=== PATIENT | female | born 1930 | race Caucasian/White ===

== ENCOUNTER 2020-07-22 13:25 | Inpatient (IN) ==
[2020-07-22] MEDS ORDERED: Naloxone 0.4 MG/ML INJ IVP PRN (16:29)
[2020-07-22] MEDS ORDERED: Ipratropium/Albuterol Neb 3 ML IH PRN (17:05)
[2020-07-22 17:32] LABS: Hemoglobin 6.7 g/dL (11.5-15.4); Immature Granulocytes % 0.2 % (0-4); Mean Platelet Volume 10.1 fL (9.4-12.4); Red Cell Distribution Width 13.3 % (11.5-14.5)
[2020-07-22 17:33] LABS: Calcium 8.6 mg/dL (8.6-10.3); Potassium 4.9 mEq/L (3.5-5.1)
[2020-07-22 17:34] LABS: Hematocrit 22.5 % (35.3-44.9); Immature Platelets 4.6 % (1.1-6.1); Lymphocytes # 1.1 K/mcL (0.6-4.6); Lymphocytes % 16.4 %; Mean Corpuscular HGB Conc 29.8 g/dL (31.6-35.5); Mean Corpuscular Hemoglobin 30.7 pg (28.0-33.3); Mean Corpuscular Volume 103.2 fL (83.0-100.0); Monocytes # 0.7 K/mcL (0.0-1.3); Monocytes % 10.2 %; Neutrophils # 4.7 K/mcL (1.6-8.9); Platelet Count 108 K/mcL (140-400); Red Blood Count 2.18 M/mcL (3.82-4.97); Segmented Neutrophils % 73.2 %; White Blood Count 6.4 K/mcL (4.3-11.1)
[2020-07-22] MEDS: D5% in Water 1,000 ML IVC SCH (18:19)
[2020-07-23] MEDS ORDERED: 0.9 % Sodium Chloride 250 ML ONE ×2 (01:38→05:04)
[2020-07-23 02:32] LABS: Adenovirus Not Detected (Not Detect); Bordetella Pertussis Not Detected (Not Detect); Chlamydophila pneumoniae Not Detected (Not Detect); Coronavirus 229E Not Detected (Not Detect); Coronavirus HKU1 Not Detected (Not Detect); Coronavirus NL63 Not Detected (Not Detect); Coronavirus OC43 Not Detected (Not Detect); Human Metapneumovirus Not Detected (Not Detect); Human Rhinovirus/Enterovirus Not Detected (Not Detect); Influenza A Subtype 2009 H1 Not Detected (Not Detect); Influenza B Not Detected (Not Detect); Mycoplasma pneumoniae Not Detected (Not Detect); Parainfluenza Virus 1 Not Detected (Not Detect); Parainfluenza Virus 2 Not Detected (Not Detect); Parainfluenza Virus 3 Not Detected (Not Detect); Parainfluenza Virus 4 Not Detected (Not Detect); Respiratory Syncytial Virus Not Detected (Not Detect); SARS-CoV-2 Not Detected (Not Detect)
[2020-07-23] MEDS: D5% in Water 1,000 ML IVC SCH (06:22)
[2020-07-23 11:12] LABS: Calcium 8.1 mg/dL (8.6-10.3); Magnesium 1.9 mg/dL (1.6-2.6); Phosphorous 3.5 mg/dL (2.7-4.5); Potassium 4.5 mEq/L (3.5-5.1)
[2020-07-23 12:22] LABS: Eosinophils % 0.4 %; Mean Corpuscular Volume 92.2 fL (83.0-100.0)
[2020-07-23 12:24] LABS: Basophils % 0.8 %; Hematocrit 24.9 % (35.3-44.9); Immature Granulocytes % 3.9 % (0-4); Immature Platelets 3.8 % (1.1-6.1); Lymphocytes % 19.5 %; Mean Corpuscular HGB Conc 32.1 g/dL (31.6-35.5); Mean Corpuscular Hemoglobin 29.6 pg (28.0-33.3); Mean Platelet Volume 10.6 fL (9.4-12.4); Monocytes # 0.8 K/mcL (0.0-1.3); Monocytes % 15.8 %; Segmented Neutrophils % 59.6 %; White Blood Count 5.1 K/mcL (4.3-11.1)
[2020-07-23 12:42] LABS: Platelet Count 81 K/mcL (140-400)
[2020-07-23] MEDS ORDERED: *HR* FentaNYL (PF) 100 MCG/2 ML VIAL ONE (14:41)
[2020-07-23] MEDS ORDERED: Dexamethasone 4 MG/ML VIAL ONE (14:43)
[2020-07-23] MEDS ORDERED: Ondansetron 4 MG/2 ML VIAL ONE (14:43)
[2020-07-23] MEDS ORDERED: *HR* Succinylcholine 200 MG/10 ML VIAL IVP ONE (14:44)
[2020-07-23] MEDS ORDERED: *HR* Propofol 200 MG/20 ML VIAL IVP ONE (14:44)
[2020-07-23 14:49] LABS: INR 1.1; Prothrombin Time 13.1 Seconds (9.4-12.1)
[2020-07-23] MEDS ORDERED: ALPRAZolam 1 MG TABLET PO SCH (15:00)
[2020-07-23] MEDS ORDERED: Ondansetron 4 MG/2 ML VIAL IVP PRN ×2 (15:22→20:33)
[2020-07-23] MEDS ORDERED: *HR* OxyCODONE Immed Rel 5 MG TABLET PO PRN ×2 (15:22→20:33)
[2020-07-23] MEDS ORDERED: *HR* HYDROmorphone PF 0.5 MG/0.5 ML SYRINGE IVP PRN ×2 (15:22→20:33)
[2020-07-23] MEDS ORDERED: ceFAZolin 2,000 MG in Water for inj. (sterile) 20 ML IVP ONE (17:00)
[2020-07-23] MEDS ORDERED: EPHEDrine 50 MG/ML VIAL ONE (17:01)
[2020-07-23] MEDS ORDERED: *HR* PHENYLEPHRINE 1,000 MCG/10 ML SYRINGE IVP ONE ×2 (17:31→17:50)
[2020-07-23] MEDS ORDERED: *HR* Phenylephrine 10 MG/ML VIAL ONE (18:00)
[2020-07-23] MEDS ORDERED: Albumin Human 5% 12.5 GM/250 ML IV.SOLN ONE ×2 (18:19→18:34)
[2020-07-23 18:22] LABS: VBG Base Excess 10 mEq/L; VBG Chloride 98 mEq/L (98-107); VBG Glucose 117 mg/dl (65-95); VBG HCO3 36 mEq/L (21-27); VBG Ionized Calcium 1.08 mmol/L (1.15-1.35); VBG Oxygen Saturation 30 %; VBG PCO2 61 mmHg (41-51); VBG PH 7.38 pH Units (7.32-7.42); VBG PO2 20 mmHg (25-50); VBG Total CO2 38 mEq/L
[2020-07-23] MEDS: Ipratropium/Albuterol Neb 3 ML IH SCH ×3 (19:01→19:10)
[2020-07-23] MEDS ORDERED: *HR* HYDROMORPHONE 2 MG/ML VIAL ONE (19:10)
[2020-07-23] MEDS ORDERED: Ipratropium/Albuterol Neb 3 ML IH PRN (20:33)
[2020-07-23] MEDS ORDERED: Naloxone 0.4 MG/ML INJ IVP PRN (20:33)
[2020-07-23] MEDS ORDERED: D5% in Water 1,000 ML IVC SCH (20:33)
[2020-07-23] MEDS ORDERED: Gabapentin 300 MG CAPSULE PO SCH (21:00)
[2020-07-23 21:56] LABS: Hematocrit 22.1 % (35.3-44.9); Hemoglobin 7.2 g/dL (11.5-15.4)
[2020-07-23] MEDS ORDERED: Budesonide/Formoterol 160/4.5 1 PUFF INH IH SCH (22:00)
[2020-07-23] MEDS: ALPRAZolam 1 MG TABLET PO SCH (22:10)
[2020-07-23] MEDS: Gabapentin 300 MG CAPSULE PO SCH (22:10)
[2020-07-23] MEDS: Budesonide/Formoterol 160/4.5 1 PUFF INH IH SCH (22:38)
[2020-07-24] MEDS: Ipratropium/Albuterol Neb 3 ML IH SCH ×6 (00:06→21:16)
[2020-07-24] MEDS: ceFAZolin 2,000 MG in 0.9 % Sodium Chloride 100 ML IVPB SCH ×3 (00:37→16:14)
[2020-07-24 01:47] LABS: Mean Corpuscular Volume 94.8 fL (83.0-100.0); White Blood Count 5.3 K/mcL (4.3-11.1)
[2020-07-24 01:50] LABS: Hematocrit 18.1 % (35.3-44.9); Immature Granulocytes % 0.2 % (0-4); Immature Platelets 4.3 % (1.1-6.1); Lymphocytes # 0.5 K/mcL (0.6-4.6); Lymphocytes % 8.5 %; Mean Corpuscular HGB Conc 31.5 g/dL (31.6-35.5); Mean Corpuscular Hemoglobin 29.8 pg (28.0-33.3); Monocytes # 0.6 K/mcL (0.0-1.3); Monocytes % 10.5 %; Neutrophils # 4.3 K/mcL (1.6-8.9); Red Blood Count 1.91 M/mcL (3.82-4.97); Segmented Neutrophils % 80.8 %
[2020-07-24 01:52] LABS: Platelet Count 70 K/mcL (140-400)
[2020-07-24 01:56] LABS: Hemoglobin 5.7 g/dL (11.5-15.4)
[2020-07-24 02:07] LABS: Calcium 7.3 mg/dL (8.6-10.3); Magnesium 1.7 mg/dL (1.6-2.6); Phosphorous 4.2 mg/dL (2.7-4.5); Potassium 4.8 mEq/L (3.5-5.1)
[2020-07-24] MEDS ORDERED: 0.9 % Sodium Chloride 250 ML ONE ×3 (03:04→18:12)
[2020-07-24] MEDS: Budesonide/Formoterol 160/4.5 1 PUFF INH IH SCH ×2 (08:09→21:16)
[2020-07-24] MEDS ORDERED: Aspirin Enteric Coated 81 MG Tablet PO SCH (09:00)
[2020-07-24] MEDS: Gabapentin 300 MG CAPSULE PO SCH ×2 (09:59→20:15)
[2020-07-24] MEDS: ALPRAZolam 1 MG TABLET PO SCH ×3 (10:00→20:15)
[2020-07-24] MEDS: Aspirin Enteric Coated 81 MG Tablet PO SCH (10:01)
[2020-07-24] MEDS ORDERED: Furosemide 40 MG/4 ML VIAL IVP ONE (15:49)
[2020-07-24 16:21] LABS: Hematocrit 22.3 % (35.3-44.9); Hemoglobin 7.2 g/dL (11.5-15.4)
[2020-07-24] MEDS ORDERED: Furosemide 20 MG/2 ML VIAL IVP ONE (16:47)
[2020-07-25] MEDS: Ipratropium/Albuterol Neb 3 ML IH SCH ×7 (00:14→23:37)
[2020-07-25 00:27] LABS: Hematocrit 24.1 % (35.3-44.9); Hemoglobin 7.6 g/dL (11.5-15.4)
[2020-07-25] MEDS: Budesonide/Formoterol 160/4.5 1 PUFF INH IH SCH ×2 (08:04→19:47)
[2020-07-25] MEDS: Gabapentin 300 MG CAPSULE PO SCH ×2 (09:34→20:42)
[2020-07-25] MEDS: Aspirin Enteric Coated 81 MG Tablet PO SCH (09:34)
[2020-07-25] MEDS: ALPRAZolam 1 MG TABLET PO SCH ×3 (09:35→20:42)
[2020-07-25] MEDS: polyethylene glycoL 3350 17 GM POWD.PACK PO SCH (09:42)
[2020-07-25 10:27] LABS: Immature Granulocytes % 0.2 % (0-4); Mean Corpuscular Volume 94.4 fL (83.0-100.0); Red Cell Distribution Width 15.9 % (11.5-14.5); Segmented Neutrophils % 73.1 %
[2020-07-25 10:29] LABS: Hematocrit 25.5 % (35.3-44.9); Hemoglobin 8.2 g/dL (11.5-15.4); Immature Platelets 3.6 % (1.1-6.1); Lymphocytes # 0.6 K/mcL (0.6-4.6); Lymphocytes % 13.8 %; Mean Corpuscular HGB Conc 32.2 g/dL (31.6-35.5); Mean Corpuscular Hemoglobin 30.4 pg (28.0-33.3); Mean Platelet Volume 10.3 fL (9.4-12.4); Monocytes # 0.5 K/mcL (0.0-1.3); Monocytes % 11.9 %; Neutrophils # 3.1 K/mcL (1.6-8.9); White Blood Count 4.2 K/mcL (4.3-11.1)
[2020-07-25 10:30] LABS: Platelet Count 74 K/mcL (140-400)
[2020-07-25 10:45] LABS: BUN/Creatinine Ratio 32 (6-26); Blood Urea Nitrogen 27 mg/dL (8-23); Calcium 7.4 mg/dL (8.6-10.3); Carbon Dioxide 33 mEq/L (23-29); Chloride 100 mEq/L (98-107); Glucose 207 mg/dL (70-105); Magnesium 1.7 mg/dL (1.6-2.6); Osmolality,Calculated 293 (280-300); Potassium 4.1 mEq/L (3.5-5.1); Sodium 136 mEq/L (136-145); eGFR For African Americans > 60 (> 60); eGFR For Non-African Americans > 60 (> 60)
[2020-07-25] MEDS ORDERED: Perflutren Lipid Microsphere 1.3 ML in 0.9 % Sodium Chloride 8.7 ML IVP PRN (14:00)
[2020-07-25] MEDS ORDERED: 0.9 % Sodium Chloride 1,000 ML IVC ONE (14:01)
[2020-07-25 14:56] LABS: Hematocrit 26.2 % (35.3-44.9); Hemoglobin 8.2 g/dL (11.5-15.4)
[2020-07-25] MEDS ORDERED: 0.9 % Sodium Chloride 250 ML ONE ×2 (15:14→22:42)
[2020-07-25] MEDS ORDERED: Furosemide 20 MG/2 ML VIAL IVP ONE (16:27)
[2020-07-26] MEDS ORDERED: Acetaminophen IV 500 MG/50 ML INFUS..BTL IVPB ONE (00:14)
[2020-07-26] MEDS: Ipratropium/Albuterol Neb 3 ML IH SCH ×6 (03:38→23:28)
[2020-07-26 05:15] LABS: ABG Base Excess 14 mEq/L (-2 to 3); ABG HCO3 41 mEq/L (21-27); ABG Oxygen Saturation 96 % (95-98); ABG PCO2 71 mmHg (35-45); ABG PH 7.37 pH Units (7.32-7.45); ABG PO2 87 mmHg (85-104); ABG TCO2 43 mEq/L (20-26)
[2020-07-26] MEDS: Budesonide/Formoterol 160/4.5 1 PUFF INH IH SCH ×2 (08:00→19:56)
[2020-07-26 08:46] LABS: Basophils % 0.3 %; Immature Granulocytes % 0.3 % (0-4); Mean Platelet Volume 9.4 fL (9.4-12.4)
[2020-07-26 08:48] LABS: Eosinophils # 0.1 K/mcL (0.0-0.6); Eosinophils % 2.2 %; Hematocrit 27.9 % (35.3-44.9); Hemoglobin 8.9 g/dL (11.5-15.4); Immature Platelets 2.5 % (1.1-6.1); Lymphocytes # 0.9 K/mcL (0.6-4.6); Lymphocytes % 28.6 %; Mean Corpuscular HGB Conc 31.9 g/dL (31.6-35.5); Mean Corpuscular Hemoglobin 30.2 pg (28.0-33.3); Mean Corpuscular Volume 94.6 fL (83.0-100.0); Monocytes # 0.4 K/mcL (0.0-1.3); Monocytes % 13.7 %; Neutrophils # 1.8 K/mcL (1.6-8.9); Red Blood Count 2.95 M/mcL (3.82-4.97); Red Cell Distribution Width 15.3 % (11.5-14.5); Segmented Neutrophils % 54.9 %; White Blood Count 3.2 K/mcL (4.3-11.1)
[2020-07-26 08:50] LABS: Platelet Count 79 K/mcL (140-400)
[2020-07-26 09:08] LABS: BUN/Creatinine Ratio 27 (6-26); Blood Urea Nitrogen 21 mg/dL (8-23); Calcium 7.9 mg/dL (8.6-10.3); Carbon Dioxide 39 mEq/L (23-29); Chloride 103 mEq/L (98-107); Glucose 109 mg/dL (70-105); Magnesium 1.7 mg/dL (1.6-2.6); Osmolality,Calculated 300 (280-300); Phosphorous 2.5 mg/dL (2.7-4.5); Potassium 4.1 mEq/L (3.5-5.1); Sodium 143 mEq/L (136-145); eGFR For African Americans > 60 (> 60); eGFR For Non-African Americans > 60 (> 60)
[2020-07-26] MEDS ORDERED: 0.9 % Sodium Chloride 1,000 ML IVC SCH (09:30)
[2020-07-26] MEDS ORDERED: cefTRIAXone 1,000 MG in Water for inj. (sterile) 10 ML IVP SCH (10:00)
[2020-07-26] MEDS: polyethylene glycoL 3350 17 GM POWD.PACK PO SCH (10:02)
[2020-07-26] MEDS: Aspirin Enteric Coated 81 MG Tablet PO SCH (10:06)
[2020-07-26] MEDS: Gabapentin 300 MG CAPSULE PO SCH ×3 (10:06→21:28)
[2020-07-26 12:10] LABS: Bacteria,Urine Few per hpf (None-Few); Bilirubin,Urine Negative (Negative); Blood,Urine Small (Negative); Clarity,Urine Clear (Clear); Color,Urine Light-Orange (Yellow); Glucose,Urine (UA) Normal (Normal); Ketones,Urine Negative (Negative); Leukocyte Esterase,Urine Negative (Negative); Mucus,Urine Few per lpf (None-Few); Nitrite,Urine Negative (Negative); Protein,Urine 50 mg/dL (Neg-Trace); Specific Gravity,Urine 1.018 (1.010-1.025); Squamous Epithelial Cell,Urine Few per hpf (None-Few); Urobilinogen,Urine Normal (Normal); WBC,Urine 0-3 per hpf (0-3)
[2020-07-26] MEDS ORDERED: Azithromycin 500 MG in 0.9 % Sodium Chloride 250 ML IVPB SCH (13:00)
[2020-07-26] MEDS: Piperacillin/Tazobactam 3.375 GM in 0.9 % Sodium Chloride Mini Bag 100 ML IVPB SCH ×2 (13:49→21:29)
[2020-07-27] MEDS ORDERED: *HR* LORazepam 2 MG/ML VIAL IVP ONE (02:10)
[2020-07-27] MEDS: Ipratropium/Albuterol Neb 3 ML IH SCH ×2 (03:29→07:20)
[2020-07-27 05:16] LABS: Basophils % 0.3 %; Eosinophils # 0.1 K/mcL (0.0-0.6); Eosinophils % 3.9 %; Hematocrit 25.5 % (35.3-44.9); Immature Granulocytes % 0.3 % (0-4); Immature Platelets 2.9 % (1.1-6.1); Lymphocytes # 0.8 K/mcL (0.6-4.6); Lymphocytes % 25.1 %; Mean Corpuscular HGB Conc 31.4 g/dL (31.6-35.5); Mean Corpuscular Hemoglobin 30.9 pg (28.0-33.3); Mean Corpuscular Volume 98.5 fL (83.0-100.0); Mean Platelet Volume 9.6 fL (9.4-12.4); Monocytes # 0.4 K/mcL (0.0-1.3); Monocytes % 13.7 %; Neutrophils # 1.7 K/mcL (1.6-8.9); Platelet Count 104 K/mcL (140-400); Red Blood Count 2.59 M/mcL (3.82-4.97); Red Cell Distribution Width 14.9 % (11.5-14.5); Segmented Neutrophils % 56.7 %; White Blood Count 3.1 K/mcL (4.3-11.1)
[2020-07-27 05:21] LABS: BUN/Creatinine Ratio 24 (6-26); Blood Urea Nitrogen 19 mg/dL (8-23); Calcium 7.6 mg/dL (8.6-10.3); Carbon Dioxide 38 mEq/L (23-29); Chloride 99 mEq/L (98-107); Glucose 87 mg/dL (70-105); Magnesium 1.6 mg/dL (1.6-2.6); Osmolality,Calculated 288 (280-300); Phosphorous 2.5 mg/dL (2.7-4.5); Potassium 4.4 mEq/L (3.5-5.1); Sodium 138 mEq/L (136-145); eGFR For African Americans > 60 (> 60); eGFR For Non-African Americans > 60 (> 60)
[2020-07-27] MEDS: Piperacillin/Tazobactam 3.375 GM in 0.9 % Sodium Chloride Mini Bag 100 ML IVPB SCH ×3 (05:39→20:30)
[2020-07-27] MEDS: Budesonide/Formoterol 160/4.5 1 PUFF INH IH SCH ×2 (07:20→20:54)
[2020-07-27] MEDS: polyethylene glycoL 3350 17 GM POWD.PACK PO SCH (09:02)
[2020-07-27] MEDS: Gabapentin 300 MG CAPSULE PO SCH ×2 (09:03→20:30)
[2020-07-27] MEDS: Aspirin Enteric Coated 81 MG Tablet PO SCH (09:03)
[2020-07-27] MEDS: Furosemide 20 MG/2 ML VIAL IVP SCH (13:52)
[2020-07-27] MEDS ORDERED: Lactulose Oral Soln 20 GM/30 ML UDC PO ONE (14:31)
[2020-07-27] MEDS ORDERED: Milk and Molasses Enema 200 ML RC ONE (14:31)
[2020-07-28 02:21] LABS: Basophils % 0.5 %; Eosinophils # 0.2 K/mcL (0.0-0.6); Eosinophils % 4.6 %; Hematocrit 28.9 % (35.3-44.9); Hemoglobin 8.8 g/dL (11.5-15.4); Immature Granulocytes % 0.3 % (0-4); Lymphocytes # 0.7 K/mcL (0.6-4.6); Lymphocytes % 17.7 %; Mean Corpuscular HGB Conc 30.4 g/dL (31.6-35.5); Mean Corpuscular Hemoglobin 29.8 pg (28.0-33.3); Mean Platelet Volume 9.3 fL (9.4-12.4); Monocytes # 0.5 K/mcL (0.0-1.3); Monocytes % 13.3 %; Neutrophils # 2.3 K/mcL (1.6-8.9); Platelet Count 116 K/mcL (140-400); Red Blood Count 2.95 M/mcL (3.82-4.97); Red Cell Distribution Width 14.7 % (11.5-14.5); Segmented Neutrophils % 63.6 %; White Blood Count 3.7 K/mcL (4.3-11.1)
[2020-07-28 02:45] LABS: BUN/Creatinine Ratio 22 (6-26); Blood Urea Nitrogen 19 mg/dL (8-23); Calcium 8.1 mg/dL (8.6-10.3); Carbon Dioxide 37 mEq/L (23-29); Chloride 97 mEq/L (98-107); Glucose 119 mg/dL (70-105); Magnesium 1.6 mg/dL (1.6-2.6); Osmolality,Calculated 291 (280-300); Phosphorous 3.5 mg/dL (2.7-4.5); Potassium 4.4 mEq/L (3.5-5.1); Sodium 139 mEq/L (136-145); eGFR For African Americans > 60 (> 60); eGFR For Non-African Americans > 60 (> 60)
[2020-07-28] MEDS: Piperacillin/Tazobactam 3.375 GM in 0.9 % Sodium Chloride Mini Bag 100 ML IVPB SCH ×2 (05:26→12:29)
[2020-07-28] MEDS: Budesonide/Formoterol 160/4.5 1 PUFF INH IH SCH (07:57)
[2020-07-28] MEDS: polyethylene glycoL 3350 17 GM POWD.PACK PO SCH (09:21)
[2020-07-28] MEDS: Aspirin Enteric Coated 81 MG Tablet PO SCH (09:21)
[2020-07-28] MEDS: Gabapentin 300 MG CAPSULE PO SCH (09:21)
[2020-07-28] MEDS: Furosemide 20 MG/2 ML VIAL IVP SCH (09:22)
[2020-07-28 15:35] VITALS: BP 116/61
== END 2020-07-28 17:45 | DRG 480 ==
LOC: 3NENU
PROVIDERS: ADMIT Internal Medicine; ATTEND Internal Medicine